=== PATIENT | male | born 1985 | race Caucasian/White ===

== ENCOUNTER 2020-12-14 16:24 | Emergency (ER) | payer MEDICAID ==
[~2020-12-14] VITALS: Ht 157.5 cm; Wt 68.2 kg
[2020-12-14 16:34] VITALS: BP 129/72
== END 2020-12-14 21:33 | disposition home or self-care (01) ==
LOC: EMS 16:27
DX: S42.441A Displaced fracture (avulsion) of medial epicondyle of right humerus, initial encounter for closed fracture (principal); X58.XXXA Exposure to other specified factors, initial encounter; Y93.89 Activity, other specified; Y92.89 Other specified places as the place of occurrence of the external cause; Y99.8 Other external cause status
CPT/HCPCS: 29105; 99283

== ENCOUNTER 2021-04-08 21:37 | Emergency (ER) | payer SELFPAY ==
[~2021-04-08] VITALS: Ht 160 cm; Wt 65.9 kg
[2021-04-08 22:57] VITALS: BP 120/80
== END 2021-04-08 23:03 | disposition home or self-care (01) ==
LOC: EMS 21:37
DX: K64.8 Other hemorrhoids (principal); F41.8 Other specified anxiety disorders; F15.90 Other stimulant use, unspecified, uncomplicated
CPT/HCPCS: 99283

== ENCOUNTER 2023-10-05 04:01 | Emergency (ER) | payer SELFPAY ==
[~2023-10-05] VITALS: Ht 157.5 cm; Wt 65.9 kg
[2023-10-05 04:59] VITALS: TEMP 97.6
[2023-10-05 05:24] VITALS: BP 131/99; PULSE 89; RESP 16
[2023-10-05] MEDS: TraMADol HCL 50 MG TABLET PO ONE (06:07)
[2023-10-05] MEDS: LIDOCAINE 1% 10 ML VIAL SQ ONE (06:07)
[2023-10-05] MEDS ORDERED: CEPHALEXIN MONOHYDRATE 500 MG CAPSULE PO ONE (07:00)
[2023-10-05] MEDS ORDERED: CEPH-558 PO (07:01)
== END 2023-10-05 07:09 | disposition home or self-care (01) ==
LOC: EMS 04:04
DX: L08.9 Local infection of the skin and subcutaneous tissue, unspecified (principal); F17.210 Nicotine dependence, cigarettes, uncomplicated; F15.90 Other stimulant use, unspecified, uncomplicated
CPT/HCPCS: 99284; 10160; 73130; J3490